=== PATIENT | male | born 1960 | race Caucasian/White ===

== ENCOUNTER 2019-01-25 06:15 | Day surgery (SDC) | payer BC, SELFPAY ==
[~2019-01-25] VITALS: Ht 175.3 cm; Wt 124.6 kg
[~2019-01-25 06:15] MED LIST: ALBU90OI INH; AZIT250 PO; CEPH500 PO; CYCL10 PO; HYDACE10B; HYDACE10B PO; HYDACE5; HYDACE5 PO; HYDACE5325 PO; IBUP400; IBUP400 PO; IBUPROFEN; MUPI2TO TOP; NAPR500 PO; NAPROXEN; OMEP10ER; PRED20 PO; PSEU120ER PO; RXCYCL10 PO; RXHYDACE PO; SULTRIDS; SULTRIDS PO
--- NOTE | 2019-01-25 06:44 | NUR ---
Ambulatory in Day Surgery.PT REPORTS 4/10 LEFT KNEE PAIN. HE STATES THAT THIS IS A "TOLERABLE" LEVEL OF PAIN. HISTORY AND ALLERGIES REVIEWED. PT STATES THAT HE HAS A PENICILLIN ALLERGY-WILL CONFIRM PRE-OP ANTIBIOTICS WITH DR. ORTIZ. LUNGS CLEAR-SATS>90% ON RA. NPO STATUS CONFIRMED. Patient reports completing Chlorhexadine shower X2 prior to admission to hospital.Surgical site prepped with 2% Chlorhexidine cloth wipe. Patient States Post-Procedure ride home has been arranged.
--- NOTE | 2019-01-25 09:48 | NUR ---
ACEWRAP TO LEFT KNEE, D&I, PT ALERT AND ORIENTED. REPORTS PAIN IS 7/10. PT PROVIDED WITH ICE PACK TO LEFT KNEE AND TAKING WATER AND JELLO WITHOUT DIFFICULTY.
--- NOTE | 2019-01-25 10:28 | NUR ---
Discharge instructions reviewed with patient. Patient verbalizes understanding. Copy given to patient to take home. Discharged via wheelchair to private car for ride home. SONIDO WRAP TO LEFT KNEE C/D/I, PT ABLE TO WIGGLE TOES, FLEX AND EXTEND ANKLE AND ROTATE. NO SWELLING. ICE WAS APPLIED. PT UP TO DRESS, Discharged via wheelchair to private car for ride home.
== END 2019-01-25 22:59 | disposition home or self-care (01) ==
LOC: ORSCMMR 06:15 → ORD 07:30 → ORSCMMR 07:30
PROVIDERS: Orthopaedic Surgery
PROC: 0SBD4ZZ Excision of Left Knee Joint, Percutaneous Endoscopic Approach (ICD-10-PCS; principal; 2019-01-25 07:30)
DX: S83.232A Complex tear of medial meniscus, current injury, left knee, initial encounter (principal); G47.33 Obstructive sleep apnea (adult) (pediatric); E66.01 Morbid (severe) obesity due to excess calories; Z68.41 Body mass index [BMI] 40.0-44.9, adult
CPT/HCPCS: J0171; J0690; J1100; J1885; J2250; J2405; J2704; J3010; J7120

== ENCOUNTER 2019-04-26 19:19 | Emergency (ER) | payer OTHER ==
[~2019-04-26] VITALS: Ht 180.3 cm; Wt 117.9 kg
[2019-04-26 19:56] LABS: BASOPHILS ABSOLUTE AUTO 0.06 K/mm3 (0.00-0.23); BASOPHILS PERCENT AUTO 1 % (0-2); EOSINOPHILS ABSOLUTE AUTO 0.19 K/mm3 (0.00-0.68); EOSINOPHILS PERCENT AUTO 2 % (0-6); Hematocrit 51.4 % (37.0-53.0); Hemoglobin 17.6 g/dL (13.5-17.5); IMMATURE GRAN ABSOLUTE AUTO 0.04 K/mm3 (0.00-0.10); IMMATURE GRAN PERCENT AUTO 0 % (0-1); LYMPHOCYTES ABSOLUTE AUTO 2.87 K/mm3 (0.84-5.20); LYMPHOCYTES PERCENT AUTO 28 % (21-46); MONOCYTES ABSOLUTE AUTO 0.76 K/mm3 (0.16-1.47); MONOCYTES PERCENT AUTO 7 % (4-13); Mean Corpuscular HGB 29.9 pg (26.0-34.0); Mean Corpuscular HGB Conc 34.2 g/dL (31.5-36.5); Mean Corpuscular Volume 87 fL (80-100); NEUTROPHILS ABSOLUTE AUTO 6.52 K/mm3 (1.96-9.15); NEUTROPHILS PERCENT AUTO 62 % (41-73); Platelet Count 316 K/mm3 (150-400); RDW Coefficient Variation 13.1 % (11.7-14.2); RDW Standard Deviation 41.8 fL (35.1-46.3); Red Blood Cell Count 5.89 M/mm3 (4.30-5.90); White Blood Cell Count 10.44 K/mm3 (4.00-11.30)
[2019-04-26 20:20] LABS: Anion Gap 8 mmol/L (6-16); Blood Urea Nitrogen 16 mg/dL (8-24); Bun/Creatinine Ratio 21.1 (12.0-20.0); CO2, Blood 21 mmol/L (21-32); Calcium, Blood 8.9 mg/dL (8.5-10.1); Chloride, Blood 109 mmol/L (98-108); Creatinine, Blood 0.76 mg/dL (0.60-1.20); Glomerular Filtration Rate >60 (60-); Glucose, Blood 92 mg/dL (70-99); Potassium, Blood 3.9 mmol/L (3.5-5.5); Sodium, Blood 138 mmol/L (136-145); Troponin I <0.015 ng/mL (0.000-0.040)
[2019-04-26] MEDS ORDERED: Prednisone20 MG PO (23:43)
== END 2019-04-27 00:06 | disposition home or self-care (01) ==
LOC: ER 19:19
PROVIDERS: Physician Assistant
DX: J40 Bronchitis, not specified as acute or chronic (principal); H65.93 Unspecified nonsuppurative otitis media, bilateral; Z88.0 Allergy status to penicillin
CPT/HCPCS: 36415; 71046; 80048; 84484; 85025; 93005; 93010; 94640; 99284-25; J7512

== ENCOUNTER 2022-03-07 12:14 | Emergency (ER) | payer OTHER ==
[~2022-03-07] VITALS: Ht 177.8 cm; Wt 108.9 kg
[~2022-03-07 12:14] MED LIST changes: +Prednisone20 MG PO
[2022-03-07 13:09] LABS: BASOPHILS ABSOLUTE AUTO 0.05 K/mm3 (0.00-0.23); BASOPHILS PERCENT AUTO 1 % (0-2); EOSINOPHILS ABSOLUTE AUTO 0.16 K/mm3 (0.00-0.68); EOSINOPHILS PERCENT AUTO 2 % (0-6); Hematocrit 49.9 % (37.0-53.0); Hemoglobin 16.9 g/dL (13.5-17.5); IMMATURE GRAN ABSOLUTE AUTO 0.03 K/mm3 (0.00-0.10); IMMATURE GRAN PERCENT AUTO 0 % (0-1); LYMPHOCYTES ABSOLUTE AUTO 1.97 K/mm3 (0.84-5.20); LYMPHOCYTES PERCENT AUTO 22 % (21-46); MONOCYTES ABSOLUTE AUTO 0.41 K/mm3 (0.16-1.47); MONOCYTES PERCENT AUTO 5 % (4-13); Mean Corpuscular HGB Conc 33.9 g/dL (31.5-36.5); Mean Corpuscular Volume 89 fL (80-100); NEUTROPHILS ABSOLUTE AUTO 6.23 K/mm3 (1.96-9.15); NEUTROPHILS PERCENT AUTO 70 % (41-73); Platelet Count 271 K/mm3 (150-400); RDW Coefficient Variation 12.4 % (11.7-14.2); RDW Standard Deviation 40.4 fL (35.1-46.3); Red Blood Cell Count 5.63 M/mm3 (4.30-5.90); White Blood Cell Count 8.85 K/mm3 (4.00-11.30)
[2022-03-07 13:29] LABS: Albumin, Blood 3.7 g/dL (3.4-5.0); Albumin/Globulin Ratio 1.1 (0.8-1.8); Bilirubin, Total 0.5 mg/dL (0.1-1.0); Bun/Creatinine Ratio 15.9 (12.0-20.0); Calcium, Blood 8.5 mg/dL (8.5-10.1); Creatinine, Blood 0.75 mg/dL (0.60-1.20); Globulin, Blood 3.3 g/dL (2.2-4.0); Potassium, Blood 3.8 mmol/L (3.5-5.5)
[2022-03-07] MEDS ORDERED: FLUT1DIS5 INH (15:01)
[2022-03-07] MEDS ORDERED: ALBU90OI INH (15:01)
== END 2022-03-07 15:10 | disposition home or self-care (01) ==
LOC: ER 12:14
PROVIDERS: Physician Assistant
DX: J44.9 Chronic obstructive pulmonary disease, unspecified (principal)
CPT/HCPCS: 36415; 71046; 80053; 85025; 93005; 93010; 99284-25